=== PATIENT | female | born 1975 | race American Indian/Alaskan Native ===

== ENCOUNTER 2017-10-10 09:43 | Emergency (ER) | payer SELFPAY ==
[2017-10-10] MEDS ORDERED: PROVENTIL IH ONE ×2 (13:22→15:33)
[2017-10-10] MEDS ORDERED: DELTASONE PO ONE (13:22)
[2017-10-10] MEDS ORDERED: DECADRON IV ONE (13:22)
--- NOTE | 2017-10-10 13:41 | Emergency Department Report ---
ED General Adult HPI - General Chief complaint: Upper Respiratory Infection Stated complaint: FLU SX Time Seen by Provider: 10/10/17 13:20 Source: patient Mode of arrival: Wheelchair Limitations: No Limitations - History of Present Illness Initial comments: History this 42-year-old -[place] female history of asthma who presents for flulike symptoms, fever body aches chills nausea vomiting 3 days then increase shortness of breath and wheezing. Onset/Timin -: days(s) Location: back, upper extremity, lower extremity Radiation: non-radiation, back, abdomen, flank Severity scale (0 -10): 4 Quality: aching Consistency: constant Improves with: rest Worsens with: other (activity ) Associated Symptoms: cough, fever/chills, malaise, nausea/vomiting. denies: rash, syncope, weakness Treatments Prior to Arrival: none - Related Data Previous Rx's Medication Instructions Recorded Last Taken Type ALBUTEROL Inhaler [ProAir HFA 2 puff IH QID PRN #1 inhalation 10/10/17 Unknown Rx Inhaler] Azithromycin [Zithromax Z-JAI] 250 mg PO DAILY #6 tab 10/10/17 Unknown Rx Benzonatate [Tessalon Perles] 100 mg PO Q8HR PRN #30 capsule 10/10/17 Unknown Rx Dexamethasone [Decadron] 4 mg PO Q12H #4 tablet 10/10/17 Unknown Rx Diclofenac Sodium [Voltaren] 1 applicatio TP TID PRN #1 tube 10/10/17 Unknown Rx Ibuprofen 800 mg PO TID #30 tablet 10/10/17 Unknown Rx Allergies Allergy/AdvReac Type Severity Reaction Status Date / Time acetaminophen AdvReac Unknown Verified 10/10/17 10:40 [From Tylenol-Codeine] codeine AdvReac Unknown Verified 10/10/17 10:40 [From Tylenol-Codeine] ED Review of Systems ROS: Stated complaint: FLU SX Other details as noted in HPI Constitutional: chills, fever, malaise. denies: weakness Eyes: denies: eye pain, eye discharge, vision change ENT: ear pain, throat pain, congestion Respiratory: cough, shortness of breath, wheezing Cardiovascular: denies: chest pain, palpitations Endocrine: no symptoms reported Gastrointestinal: nausea, vomiting. denies: diarrhea, constipation, hematemesis , melena, hematochezia Genitourinary: denies: urgency, dysuria, discharge Musculoskeletal: back pain. denies: joint swelling, arthralgia, myalgia Skin: denies: rash, lesions Neurological: denies: headache, weakness, paresthesias Psychiatric: denies: anxiety, depression Hematological/Lymphatic: denies: easy bleeding, easy bruising ED Past Medical Hx - Past Medical History Previous Medical History?: Yes Hx Asthma: Yes - Surgical History Past Surgical History?: Yes Additional Surgical History: tubes tied - Social History Smoking Status: Current Every Day Smoker Substance Use Type: None - Medications Home Medications: Home Medications Medication Instructions Recorded Confirmed Last Taken Type ALBUTEROL Inhaler [ProAir HFA 2 puff IH QID PRN #1 inhalation 10/10/17 Unknown Rx Inhaler] Azithromycin [Zithromax Z-JAI] 250 mg PO DAILY #6 tab 10/10/17 Unknown Rx Benzonatate [Tessalon Perles] 100 mg PO Q8HR PRN #30 capsule 10/10/17 Unknown Rx Dexamethasone [Decadron] 4 mg PO Q12H #4 tablet 10/10/17 Unknown Rx Diclofenac Sodium [Voltaren] 1 applicatio TP TID PRN #1 tube 10/10/17 Unknown Rx Ibuprofen 800 mg PO TID #30 tablet 10/10/17 Unknown Rx ED Physical Exam - General Limitations: No Limitations General appearance: alert, in no apparent distress - Head Head exam: Present: atraumatic, normocephalic - Eye Eye exam: Present: normal appearance, PERRL, EOMI Pupils: Present: normal accommodation - ENT ENT exam: Present: mucous membranes moist - Expanded ENT Exam Expanded Ear exam: Present: normal external inspection TM/Canal exam: Erythema: Right TM, Left TM, Canal Tenderness: Right TM, Left TM Mouth exam: Present: tongue normal. Absent: trismus, tongue elevation Teeth exam: Present: dental caries Throat exam: Positive: tonsillar erythema, tonsillomegaly. Negative: tonsillar exudate, R peritonsillar mass, L peritonsillar mass - Neck Neck exam: Present: normal inspection, full ROM. Absent: tenderness, meningismus, lymphadenopathy, thyromegaly - Expanded Neck Exam Expanded Neck exam: Absent: tenderness, midline deformity, anterior neck swelling, thyroid mass, carotid bruit, tracheal deviation - Respiratory Respiratory exam: Present: wheezes, chest wall tenderness. Absent: respiratory distress, rales, rhonchi, stridor, decreased breath sounds, prolonged expiratory - Cardiovascular Cardiovascular Exam: Present: regular rate, normal rhythm, normal heart sounds. Absent: systolic murmur, diastolic murmur, rubs, gallop - GI/Abdominal GI/Abdominal exam: Present: soft, normal bowel sounds. Absent: distended, tenderness, guarding, rebound, rigid, organomegaly, mass, bruit, pulsatile mass , hernia - Rectal Rectal exam: Present: deferred - Extremities Exam Extremities exam: Present: normal inspection, full ROM, normal capillary refill. Absent: tenderness, pedal edema, joint swelling, calf tenderness - Back Exam Back exam: Present: normal inspection, tenderness (no posterior vertebral point tenderness mild paraspinus tenderness to deep palpation ), muscle spasm, paraspinal tenderness. Absent: CVA tenderness (R), CVA tenderness (L), vertebral tenderness, rash noted - Neurological Exam Neurological exam: Present: alert, oriented X3, CN II-XII intact, reflexes normal - Psychiatric Psychiatric exam: Present: normal affect, normal mood - Skin Skin exam: Present: warm, dry, intact, normal color. Absent: rash ED Course Vital Signs 10/10/17 10/10/17 10/10/17 10:35 15:03 15:13 Temperature 99.6 F Pulse Rate 110 H Pulse Rate [ 105 H 110 H Bilateral Upper Lobe] Respiratory 18 Rate Respiratory 18 18 Rate [Bilateral Upper Lobe] Blood Pressure 114/81 O2 Sat by Pulse 97 Oximetry 10/10/17 16:38 Temperature Pulse Rate Pulse Rate [ 94 H Bilateral Upper Lobe] Respiratory Rate Respiratory 18 Rate [Bilateral Upper Lobe] Blood Pressure O2 Sat by Pulse Oximetry ED Medical Decision Making - Lab Data Result diagrams: 10/10/17 13:29 10/10/17 13:29 Laboratory Tests 10/10/17 10/10/17 10/10/17 13:29 13:29 13:29 WBC 4.9 RBC 4.52 Hgb 12.3 Hct 37.1 MCV 82 MCH 27 L MCHC 33 RDW 15.8 H Plt Count 191 Lymph % (Auto) 6.4 L Weld % (Auto) 9.6 H Eos % (Auto) 0.3 Baso % (Auto) 0.6 Lymph # 0.3 L Weld # 0.5 Eos # 0.0 Baso # 0.0 Seg Neutrophils % 83.1 H Seg Neutrophils # 4.0 Sodium 139 Potassium 3.9 Chloride 100.5 Carbon Dioxide 23 Anion Gap 19 BUN 14 Creatinine 0.7 Estimated GFR > 60 BUN/Creatinine Ratio 20 Glucose 95 Calcium 9.1 Total Bilirubin 0.20 AST 16 ALT 8 Alkaline Phosphatase 38 Total Protein 7.4 Albumin 4.0 Albumin/Globulin Ratio 1.2 HCG, Qual Negative - Radiology Data Radiology results: report reviewed, image reviewed no infiltrates no opacities mild thoracolumbar dextrocurvature. - Medical Decision Making History this 42-year-old -[place] female history of asthma who presents for flulike symptoms, fever body aches chills nausea vomiting 3 days then increase shortness of breath and wheezing. URI symptoms: no tm erythema or pain , moderate turbinate erythema clear post nasal drip, no obstruction on polyps no obstruction pharynx: moderate erythemla no exudate no lesions no stridor lungs clear diminished bases bilat, no wheezing cough nonproductive, there is no fever, back : no deformity no posterior vertebral point tenderness no weakness no numbness no decrease or loss or bowel or bladder function, hcg neg: pt refuses ua at this time. as I can'd pee again, plain: tx for URI Bronchitis Zpack, Albuterol, Decadron, Ibuprofen, Cheratussin, pt will follow up pcp in 2- 3 days ,follow up with ortho for recurring back pain , pt verbalized agreement and understanding of discharge plan. Critical care attestation.: If time is entered above; I have spent that time in minutes in the direct care of this critically ill patient, excluding procedure time. ED Disposition Clinical Impression: Bronchitis, Scoliosis concern Low back strain Qualifiers: Encounter type: initial encounter Qualified Code(s): S39.012A - Strain of muscle, fascia and tendon of lower back, initial encounter Chronic back pain Qualifiers: Back pain location: low back pain Back pain laterality: bilateral Sciatica presence: with sciatica Sciatica laterality: bilateral sciatica Qualified Code(s ): M54.42 - Lumbago with sciatica, left side; M54.41 - Lumbago with sciatica, right side; M54.41 - Lumbago with sciatica, right side; G89.29 - Other chronic pain; G89.29 - Other chronic pain URI (upper respiratory infection) Qualifiers: URI type: unspecified viral URI Qualified Code(s): J06.9 - Acute upper respiratory infection, unspecified Disposition: DC-01 TO HOME OR SELFCARE Is pt being admited?: No Does the pt Need Aspirin: No Condition: Good Instructions: Chronic Bronchitis (ED) Prescriptions: ALBUTEROL Inhaler [ProAir HFA Inhaler] 2 puff IH QID PRN #1 inhalation PRN Reason: Shortness Of Breath Azithromycin [Zithromax Z-JAI] 250 mg PO DAILY #6 tab Benzonatate [Tessalon Perles] 100 mg PO Q8HR PRN #30 capsule PRN Reason: Cough Dexamethasone [Decadron] 4 mg PO Q12H #4 tablet Diclofenac Sodium [Voltaren] 1 applicatio TP TID PRN #1 tube PRN Reason: Pain Ibuprofen 800 mg PO TID #30 tablet Referrals: PRIMARY CAREMD [Primary Care Provider] - 3-5 Days DOREEN HARRIS MD [Staff Physician] - 3-5 Days FARSHAD YE MD [Staff Physician] - 3-5 Days Forms: Work/School Release Form(ED) Time of Disposition: 16:59
[2017-10-10 14:03] LABS: Basophils % (Auto) 0.6 % (0.0-1.8); Eosinophils % (Auto) 0.3 % (0.0-4.3); Hematocrit 37.1 % (30.3-42.9); Hemoglobin 12.3 gm/dl (10.1-14.3); Lymphocytes # (Auto) 0.3 K/mm3 (1.2-5.4); Lymphocytes % (Auto) 6.4 % (13.4-35.0); Mean Corpuscular HGB Conc 33 % (30-34); Mean Corpuscular Hemoglobin 27 pg (28-32); Mean Corpuscular Volume 82 fl (79-97); Monocytes # (Auto) 0.5 K/mm3 (0.0-0.8); Monocytes % (Auto) 9.6 % (0.0-7.3); Platelet Count 191 K/mm3 (140-440); Red Blood Count 4.52 M/mm3 (3.65-5.03); Red Cell Distribution Width 15.8 % (13.2-15.2)
[2017-10-10 14:31] LABS: Alanine Aminotransferase 8 units/L (7-56); BUN/Creatinine Ratio 20; Blood Urea Nitrogen 14 mg/dL (7-17); Calcium 9.1 mg/dL (8.4-10.2); Hemolysis Index 2
--- NOTE | 2017-10-10 15:12 | XRay Report ---
PORTABLE CHEST INDICATION: Cough, fever. COMPARISON: None similar at this institution. FINDINGS: Portable, frontal chest radiographs, 2 images, demonstrate normal cardiomediastinal silhouette. Clear, well-expanded lungs. Mild thoracolumbar dextrocurvature, possibly positional versus scoliosis. CONCLUSION: No acute chest process, as described. Thank you for the opportunity to participate in this patient's care.
[2017-10-10] MEDS ORDERED: TORADOL IM ONE (15:33)
[2017-10-10 17:03] LABS: Bacteria,Urine 2+ /HPF (Negative); Bilirubin,Urine NEG (Negative); Blood,Urine LG (Negative); Color,Urine Yellow (Yellow); Mucus,Urine FEW /HPF; Nitrite,Urine NEG (Negative); Urobilinogen,Urine < 2.0 mg/dL (<2.0)
[2017-10-10 17:33] VITALS: BP 105/57
== END 2017-10-10 17:01 | disposition home or self-care (01) ==
LOC: ED 09:43
DX: J40 Bronchitis, not specified as acute or chronic (principal); Z88.5 Allergy status to narcotic agent; Z96.22 Myringotomy tube(s) status; F17.200 Nicotine dependence, unspecified, uncomplicated
CPT/HCPCS: 36415; 71045; 80053; 81001; 84703; 85025; 94640; 96372; 96374; 99284; J1100; J1885; J7512

== ENCOUNTER 2019-07-11 22:57 | Emergency (ER) | payer SELFPAY ==
[2019-07-12] MEDS ORDERED: oxyCODONE /ACETAMINOPHEN 5-325MG TAB PO STA (01:00)
--- NOTE | 2019-07-12 01:08 | Emergency Department Report ---
ED ENT HPI - General Chief complaint: Dental/Oral Stated complaint: RIGHT JAW PAIN/HEADACHE Time Seen by Provider: 07/12/19 00:23 Source: patient Mode of arrival: Ambulatory Limitations: No Limitations - History of Present Illness Initial comments: 44-year-old -[place] female presents with department complaining of tooth pain to the right jaw for the last 4-5 days. She had a dental extraction about 3 weeks ago and had a round of antibiotics since that time and metoprolol pain to the right jaw and tooth area was reported with palpation and eating. Pupils no fever, chills, sweats no chest pain or palpitations is no nausea vomiting. No odynophagia or dysphagia. MD complaint: tooth pain -: Gradual Location: tooth # Severity: mild Quality: dull Consistency: constant Improves with: none Worsens with: none Context- Dental: poor dental care Associated Symptoms: toothache. denies: sore throat, tinnitus, discharge from ear, rhinorrhea - Related Data Previous Rx's Medication Instructions Recorded Last Taken Type ALBUTEROL Inhaler (OR & NICU) 2 puff IH QID PRN #1 inhalation 10/10/17 Unknown Rx [ProAir HFA Inhaler] Benzonatate [Tessalon Perles] 100 mg PO Q8HR PRN #30 capsule 10/10/17 Unknown Rx Cephalexin [Keflex] 500 mg PO BID #20 capsule 10/10/17 Unknown Rx Diclofenac Sodium [Voltaren] 1 applicatio TP TID PRN #1 tube 10/10/17 Unknown Rx dexAMETHasone [Decadron] 4 mg PO Q12H #4 tablet 10/10/17 Unknown Rx traMADol [Ultram 50 MG tab] 50 mg PO Q6HR PRN #20 tablet 10/10/17 Unknown Rx Chlorhexidine Mouthwash [Peridex] 15 ml MM BID #473 bottle 07/12/19 Unknown Rx Ketorolac [Toradol] 10 mg PO Q6H PRN #15 tablet 07/12/19 Unknown Rx Lidocaine Viscous 2% 5 ml MM Q3H PRN #120 udc 07/12/19 Unknown Rx Allergies Allergy/AdvReac Type Severity Reaction Status Date / Time acetaminophen AdvReac Unknown Verified 10/10/17 10:40 [From Tylenol-Codeine] codeine AdvReac Unknown Verified 10/10/17 10:40 [From Tylenol-Codeine] ED Dental HPI - General Chief complaint: Dental/Oral Stated complaint: RIGHT JAW PAIN/HEADACHE Time Seen by Provider: 07/12/19 00:23 Source: patient Mode of arrival: Ambulatory Limitations: No Limitations - Related Data Previous Rx's Medication Instructions Recorded Last Taken Type ALBUTEROL Inhaler (OR & NICU) 2 puff IH QID PRN #1 inhalation 10/10/17 Unknown Rx [ProAir HFA Inhaler] Benzonatate [Tessalon Perles] 100 mg PO Q8HR PRN #30 capsule 10/10/17 Unknown Rx Cephalexin [Keflex] 500 mg PO BID #20 capsule 10/10/17 Unknown Rx Diclofenac Sodium [Voltaren] 1 applicatio TP TID PRN #1 tube 10/10/17 Unknown Rx dexAMETHasone [Decadron] 4 mg PO Q12H #4 tablet 10/10/17 Unknown Rx traMADol [Ultram 50 MG tab] 50 mg PO Q6HR PRN #20 tablet 10/10/17 Unknown Rx Chlorhexidine Mouthwash [Peridex] 15 ml MM BID #473 bottle 07/12/19 Unknown Rx Ketorolac [Toradol] 10 mg PO Q6H PRN #15 tablet 07/12/19 Unknown Rx Lidocaine Viscous 2% 5 ml MM Q3H PRN #120 udc 07/12/19 Unknown Rx Allergies Allergy/AdvReac Type Severity Reaction Status Date / Time acetaminophen AdvReac Unknown Verified 10/10/17 10:40 [From Tylenol-Codeine] codeine AdvReac Unknown Verified 10/10/17 10:40 [From Tylenol-Codeine] ED Review of Systems ROS: Stated complaint: RIGHT JAW PAIN/HEADACHE Other details as noted in HPI Comment: All other systems reviewed and negative ED Past Medical Hx - Past Medical History Previous Medical History?: Yes Hx Asthma: Yes Additional medical history: Uterine FIBROIDS - Surgical History Past Surgical History?: Yes Additional Surgical History: Tubal Ligation - Social History Smoking Status: Current Every Day Smoker Substance Use Type: None - Medications Home Medications: Home Medications Medication Instructions Recorded Confirmed Last Taken Type ALBUTEROL Inhaler (OR & NICU) 2 puff IH QID PRN #1 inhalation 10/10/17 Unknown Rx [ProAir HFA Inhaler] Benzonatate [Tessalon Perles] 100 mg PO Q8HR PRN #30 capsule 10/10/17 Unknown Rx Cephalexin [Keflex] 500 mg PO BID #20 capsule 10/10/17 Unknown Rx Diclofenac Sodium [Voltaren] 1 applicatio TP TID PRN #1 tube 10/10/17 Unknown Rx dexAMETHasone [Decadron] 4 mg PO Q12H #4 tablet 10/10/17 Unknown Rx traMADol [Ultram 50 MG tab] 50 mg PO Q6HR PRN #20 tablet 10/10/17 Unknown Rx Chlorhexidine Mouthwash [Peridex] 15 ml MM BID #473 bottle 07/12/19 Unknown Rx Ketorolac [Toradol] 10 mg PO Q6H PRN #15 tablet 07/12/19 Unknown Rx Lidocaine Viscous 2% 5 ml MM Q3H PRN #120 udc 07/12/19 Unknown Rx ED Physical Exam - General Limitations: No Limitations General appearance: alert, in no apparent distress - Head Head exam: Present: atraumatic, normocephalic - Eye Eye exam: Present: normal appearance, PERRL, EOMI Pupils: Present: normal accommodation - ENT ENT exam: Present: normal exam, normal orophraynx, mucous membranes moist, TM's normal bilaterally, other (severe dental erosion with several loose missing dentition there is some erythema around the right upper molar with a moderate to severe dental cavity. There is tenderness with palpation along the right temporal mandibular joint no active bleeding or discharge is noted. Airway is patent are midline) - Neck Neck exam: Present: normal inspection, full ROM - Respiratory Respiratory exam: Present: normal lung sounds bilaterally. Absent: respiratory distress, wheezes, rales, chest wall tenderness, accessory muscle use - Cardiovascular Cardiovascular Exam: Present: regular rate, normal rhythm. Absent: systolic murmur, diastolic murmur, rubs, gallop - GI/Abdominal GI/Abdominal exam: Present: soft, normal bowel sounds - Extremities Exam Extremities exam: Present: normal inspection - Back Exam Back exam: Present: normal inspection. Absent: CVA tenderness (R), CVA tenderness (L) - Neurological Exam Neurological exam: Present: alert, oriented X3, CN II-XII intact, normal gait - Psychiatric Psychiatric exam: Present: normal affect, normal mood - Skin Skin exam: Present: warm, dry, intact, normal color. Absent: rash Critical care attestation.: If time is entered above; I have spent that time in minutes in the direct care of this critically ill patient, excluding procedure time. ED Disposition Clinical Impression: Dentalgia Disposition: TO HOME OR SELFCARE Is pt being admited?: No Does the pt Need Aspirin: No Condition: Stable Instructions: Dental Caries (ED), Toothache (ED) Referrals: [facility] [Outside] - 3-5 Days
[2019-07-12 02:14] VITALS: BP 140/73
== END 2019-07-12 01:30 | disposition home or self-care (01) ==
LOC: ED 22:57
DX: K08.89 Other specified disorders of teeth and supporting structures (principal); J45.909 Unspecified asthma, uncomplicated; F17.200 Nicotine dependence, unspecified, uncomplicated
CPT/HCPCS: 99282

== ENCOUNTER 2020-05-29 13:20 | Emergency (ER) | payer SELFPAY ==
[2020-05-29 13:33] VITALS: BP 104/74
--- NOTE | 2020-05-29 15:29 | XRay Report ---
CHEST 2 VIEWS INDICATION / CLINICAL INFORMATION: Chest Pain/shortnes of breath. COMPARISON: 10/10/2017 FINDINGS: SUPPORT DEVICES: None. HEART / MEDIASTINUM: No significant abnormality. LUNGS / PLEURA: No significant pulmonary or pleural abnormality. No pneumothorax. ADDITIONAL FINDINGS: Mild thoracolumbar scoliosis IMPRESSION: Mild thoracolumbar scoliosis. No acute disease or interval change from 10/10/2017 Signer Name: Bautista Diane MD FACBailey Signed: 05/29/2020 3:25 PM Workstation Name: [email or web address]
[2020-05-29 16:19] LABS: Basophils % (Auto) 0.9 % (0.0-1.8); Eosinophils # (Auto) 0.1 K/mm3 (0.0-0.4); Eosinophils % (Auto) 1.2 % (0.0-4.3); Hematocrit 41.8 % (30.3-42.9); Hemoglobin 13.3 gm/dl (10.1-14.3); Lymphocytes # (Auto) 1.6 K/mm3 (1.2-5.4); Lymphocytes % (Auto) 33.5 % (13.4-35.0); Mean Corpuscular HGB Conc 32 % (30-34); Mean Corpuscular Volume 79 fl (79-97); Monocytes # (Auto) 0.3 K/mm3 (0.0-0.8); Platelet Count 275 K/mm3 (140-440); Red Blood Count 5.31 M/mm3 (3.65-5.03); Red Cell Distribution Width 21.7 % (13.2-15.2)
[2020-05-29 16:26] LABS: Alanine Aminotransferase 11 units/L (7-56); Albumin 4.6 g/dL (3.9-5); Blood Urea Nitrogen 14 mg/dL (7-17); Calcium 9.8 mg/dL (8.4-10.2); Hemolysis Index 7
[2020-05-29 16:38] LABS: BUN/Creatinine Ratio 23
[2020-05-29] MEDS ORDERED: LIDOCAINE VISCOUS 2% 15 ML ORAL LIQD PO ONE (19:32)
[2020-05-29] MEDS ORDERED: ALUM-MAG HYDROXIDE-SIMETHICONE 200-200-20MG/5ML ORAL LIQD 30 ML PO ONE (19:32)
[2020-05-29] MEDS ORDERED: ONDANSETRON 4 MG/2 ML INJ IV ONE (19:42)
[2020-05-29 20:36] LABS: Bilirubin,Urine NEG (Negative); Blood,Urine SM (Negative); Color,Urine Yellow (Yellow); Mucus,Urine 1+ /HPF; Protein,Urine <15 mg/dL mg/dL (Negative); Urobilinogen,Urine < 2.0 mg/dL (<2.0)
--- NOTE | 2020-05-29 21:42 | Ultrasound Report ---
ULTRASOUND ABDOMEN, LIMITED (RIGHT UPPER QUADRANT) INDICATION / CLINICAL INFORMATION: RUQ r/o gallstones. COMPARISON: None available. FINDINGS: PANCREAS: Visualized portion shows no significant abnormality. LIVER: No significant abnormality. GALLBLADDER: Minimal internal echogenicity suggesting biliary crystals or sludge. No evidence of acut e cholecystitis. BILE DUCTS: No significant abnormality. Common bile duct measures 1 mm. FREE FLUID: None. ADDITIONAL FINDINGS: None. IMPRESSION: 1. Biliary crystals versus sludge. No acute cholecystitis. Signer Name: Bassam Santoyo MD Signed: 05/29/2020 9:37 PM Workstation Name: [id number]
--- NOTE | 2020-05-29 21:49 | Emergency Department Report ---
ED Chest Pain HPI - General Chief Complaint: Chest Pain Stated Complaint: ABD PAIN Time Seen by Provider: 05/29/20 19:31 Source: patient Mode of arrival: Ambulatory Limitations: No Limitations - History of Present Illness Initial Comments: Patient is a 44-year-old -[place] female patient denies medical history who presents for right upper quadrant abdominal pain radiating to mid chest x2 weeks. Patient is [id number] smoker. Symptoms are exacerbated by moving and activity. Patient states nausea and vomiting x2 episodes today, states green bile looking substance. There is been no dizziness, lightheadedness, or shortness of breath. Pain is exacerbated by movement bending twisting and activity. Pain is relieved by nothing tried. Patient states pain rating is 5/10 at this time. MD Complaint: chest pain Severity scale (0 -10): 8 - Related Data Previous Rx's Medication Instructions Recorded Last Taken Type Albuterol Mdi (or & Nicu Only) 2 puff IH QID PRN #1 inhalation 10/10/17 Unknown Rx [ProAir HFA Inhaler] Benzonatate [Tessalon Perles] 100 mg PO Q8HR PRN #30 capsule 10/10/17 Unknown Rx Cephalexin [Keflex] 500 mg PO BID #20 capsule 10/10/17 Unknown Rx Diclofenac Sodium [Voltaren] 1 applicatio TP TID PRN #1 tube 10/10/17 Unknown Rx dexAMETHasone [Decadron] 4 mg PO Q12H #4 tablet 10/10/17 Unknown Rx traMADoL [Ultram 50 MG tab] 50 mg PO Q6HR PRN #20 tablet 10/10/17 Unknown Rx Chlorhexidine Mouthwash [Peridex] 15 ml MM BID #473 bottle 07/12/19 Unknown Rx Ketorolac [Toradol] 10 mg PO Q6H PRN #15 tablet 07/12/19 Unknown Rx Lidocaine Viscous 2% 5 ml MM Q3H PRN #120 udc 07/12/19 Unknown Rx Famotidine [Pepcid] 20 mg PO BID #30 tablet 05/29/20 Unknown Rx Allergies Allergy/AdvReac Type Severity Reaction Status Date / Time codeine Allergy Hives Verified 05/29/20 13:36 [From Tylenol-Codeine] latex Allergy Unknown Verified 05/29/20 13:36 Heart Score - HEART Score History: Slightly suspicious EKG: Normal Age: < 45 Risk factors: No known risk factors Troponin: < normal limit HEART Score: 0 ED Review of Systems ROS: Stated complaint: ABD PAIN Other details as noted in HPI Constitutional: denies: chills, fever Eyes: denies: eye pain, eye discharge, vision change ENT: denies: ear pain, throat pain Respiratory: denies: cough, shortness of breath, wheezing Cardiovascular: chest pain. denies: palpitations Endocrine: no symptoms reported Gastrointestinal: abdominal pain, nausea, vomiting. denies: diarrhea Genitourinary: denies: urgency, dysuria, discharge Musculoskeletal: denies: back pain, joint swelling, arthralgia Skin: denies: rash, lesions Neurological: denies: headache, weakness, paresthesias Psychiatric: denies: anxiety, depression Hematological/Lymphatic: denies: easy bleeding, easy bruising ED Past Medical Hx - Past Medical History Hx Asthma: Yes Additional medical history: Uterine FIBROIDS - Surgical History Additional Surgical History: Tubal Ligation - Social History Smoking Status: Current Every Day Smoker Substance Use Type: None - Medications Home Medications: Home Medications Medication Instructions Recorded Confirmed Last Taken Type Albuterol Mdi (or & Nicu Only) 2 puff IH QID PRN #1 inhalation 10/10/17 Unknown Rx [ProAir HFA Inhaler] Benzonatate [Tessalon Perles] 100 mg PO Q8HR PRN #30 capsule 10/10/17 Unknown Rx Cephalexin [Keflex] 500 mg PO BID #20 capsule 10/10/17 Unknown Rx Diclofenac Sodium [Voltaren] 1 applicatio TP TID PRN #1 tube 10/10/17 Unknown Rx dexAMETHasone [Decadron] 4 mg PO Q12H #4 tablet 10/10/17 Unknown Rx traMADoL [Ultram 50 MG tab] 50 mg PO Q6HR PRN #20 tablet 10/10/17 Unknown Rx Chlorhexidine Mouthwash [Peridex] 15 ml MM BID #473 bottle 07/12/19 Unknown Rx Ketorolac [Toradol] 10 mg PO Q6H PRN #15 tablet 07/12/19 Unknown Rx Lidocaine Viscous 2% 5 ml MM Q3H PRN #120 udc 07/12/19 Unknown Rx Famotidine [Pepcid] 20 mg PO BID #30 tablet 05/29/20 Unknown Rx ED Physical Exam - General Limitations: No Limitations General appearance: alert, in no apparent distress - Head Head exam: Present: atraumatic - Eye Eye exam: Present: normal appearance, EOMI Pupils: Present: normal accommodation - ENT ENT exam: Present: mucous membranes moist - Neck Neck exam: Present: normal inspection, full ROM. Absent: tenderness, lymphadenopathy - Respiratory Respiratory exam: Present: normal lung sounds bilaterally, wheezes. Absent: respiratory distress, stridor, chest wall tenderness - Cardiovascular Cardiovascular Exam: Present: regular rate, normal rhythm, normal heart sounds. Absent: systolic murmur, diastolic murmur, rubs, gallop - GI/Abdominal GI/Abdominal exam: Present: soft, distended, tenderness (RUQ ), normal bowel sounds. Absent: guarding, rebound, rigid, bruit, hernia - Expanded GI/Abdominal Exam Expanded GI/Abdominal exam: Present: Francis's sign. Absent: psoas sign, obturator sign, heel tap sign, Rovsing's sign, tenderness at Mcburney's Point - Rectal Rectal exam: Present: deferred - Extremities Exam Extremities exam: Present: normal inspection, full ROM, normal capillary refill. Absent: tenderness, pedal edema - Back Exam Back exam: Present: normal inspection, full ROM. Absent: tenderness, CVA tenderness (R) - Neurological Exam Neurological exam: Present: alert, oriented X3, CN II-XII intact, normal gait - Psychiatric Psychiatric exam: Present: normal affect, normal mood - Skin Skin exam: Present: warm, dry, intact, normal color. Absent: rash ED Course Vital Signs 05/29/20 13:32 Temperature 98.1 F Pulse Rate 100 H Respiratory 18 Rate Blood Pressure 104/74 [Right] O2 Sat by Pulse 100 Oximetry WILLY score - Willy Score Age > 65: (0) No Aspirin use within the Past 7 Days: (0) No 3 or more CAD Risk Factors: (0) No 2 or more Angina events in past 24 hrs: (0) No Known CAD with more than 50% Stenosis: (0) No Elevated Cardiac Markers: (0) No ST Deviation Greater than 0.5mm: (0) No WILLY Score: 0 ED Medical Decision Making - Lab Data Result diagrams: 05/29/20 15:39 05/29/20 15:39 Labs 05/29/20 05/29/20 05/29/20 15:39 15:39 18:23 WBC 4.9 RBC 5.31 H Hgb 13.3 Hct 41.8 MCV 79 MCH 25 L MCHC 32 RDW 21.7 H Plt Count 275 Lymph % (Auto) 33.5 [place] % (Auto) 7.0 Eos % (Auto) 1.2 Baso % (Auto) 0.9 Lymph # 1.6 [place] # 0.3 Eos # 0.1 Baso # 0.0 Seg Neutrophils % 57.4 Seg Neutrophils # 2.8 Sodium 138 Potassium 3.8 Chloride 100.1 Carbon Dioxide 22 Anion Gap 20 BUN 14 Creatinine 0.6 Estimated GFR > 60 BUN/Creatinine Ratio 23 Glucose 82 Calcium 9.8 Total Bilirubin 0.30 AST 19 ALT 11 Alkaline Phosphatase 49 Troponin T < 0.010 < 0.010 Total Protein 8.0 Albumin 4.6 Albumin/Globulin Ratio 1.4 Lipase Urine Color Urine Turbidity Urine pH Ur Specific [place] Urine Protein Urine Glucose (UA) Urine Ketones Urine Blood Urine Nitrite Urine Bilirubin Urine Urobilinogen Ur Leukocyte Esterase Urine WBC (Auto) Urine RBC (Auto) U Epithel Cells (Auto) Urine Mucus 05/29/20 05/29/20 19:45 20:27 WBC RBC Hgb Hct MCV MCH MCHC RDW Plt Count Lymph % (Auto) [place] % (Auto) Eos % (Auto) Baso % (Auto) Lymph # [place] # Eos # Baso # Seg Neutrophils % Seg Neutrophils # Sodium Potassium Chloride Carbon Dioxide Anion Gap BUN Creatinine Estimated GFR BUN/Creatinine Ratio Glucose Calcium Total Bilirubin AST ALT Alkaline Phosphatase Troponin T Total Protein Albumin Albumin/Globulin Ratio Lipase 17 Urine Color Yellow Urine Turbidity Clear Urine pH 5.0 Ur Specific [place] 1.015 Urine Protein <15 mg/dl Urine Glucose (UA) Neg Urine Ketones 80 Urine Blood Sm Urine Nitrite Neg Urine Bilirubin Neg Urine Urobilinogen < 2.0 Ur Leukocyte Esterase Neg Urine WBC (Auto) 2.0 Urine RBC (Auto) 3.0 U Epithel Cells (Auto) 3.0 Urine Mucus 1+ - EKG Data EKG shows normal: sinus rhythm Rate: normal - EKG Data Interpretation: normal EKG (NSR Bilat enlargment , No STEMI , ekg interp by ed attending ) - Radiology Data Findings Reporting MD: Bassam Santoyo Dictation Time: May 29, 2020 20:37 Biological Lab Technician: Not available Press Operator Assistant Date: ULTRASOUND ABDOMEN, LIMITED (RIGHT UPPER QUADRANT) INDICATION / CLINICAL INFORMATION: RUQ r/o gallstones. COMPARISON: None available. FINDINGS: PANCREAS: Visualized portion shows no significant abnormality. LIVER: No significant abnormality. GALLBLADDER: Minimal internal echogenicity suggesting biliary crystals or sludge. No evidence of acute cholecystitis. BILE DUCTS: No significant abnormality. Common bile duct measures 1 mm. FREE FLUID: None. ADDITIONAL FINDINGS: None. IMPRESSION: 1. Biliary crystals versus sludge. No acute cholecystitis. Signer Name: Bassam Santoyo MD Signed: 05/29/2020 8:37 PM Workstation Name: [id number] Findings Reporting MD: Bautista Diane Dictation Time: May 29, 2020 14:25 Biological Lab Technician: Not available Press Operator Assistant Date: CHEST 2 VIEWS INDICATION / CLINICAL INFORMATION: Chest Pain/shortnes of breath. COMPARISON: 10/10/2017 FINDINGS: SUPPORT DEVICES: None. HEART / MEDIASTINUM: No significant abnormality. LUNGS / PLEURA: No significant pulmonary or pleural abnormality. No pneumothorax. ADDITIONAL FINDINGS: Mild thoracolumbar scoliosis IMPRESSION: Mild thoracolumbar scoliosis. No acute disease or interval change from 10/10/2017 Signer Name: Bautista Diane MD FACR Signed: 05/29/2020 2:25 PM Workstation Name: [id number] - Medical Decision Making EKG normal sinus rhythm no ST elevated [facility] EKG interpreted by ED attending. Chest x-ray is normal no infiltrates no opacities. Ultrasound right upper quadrant mild sludge no gallstones. Heart score is 0. WILLY score is 0. Labs are normal UA is normal pain is improved with GI cocktail given in ED. Patient advised to stop smoking DC'd home with short-term PPI follow-up with PCP in 2 to 3 days patient will return to ED should symptoms worsen or shortness of breath or continued chest pain. Patient verbalized agreement and understanding with discharge plan. Patient DC'd home in stable condition at this time. Critical care attestation.: If time is entered above; I have spent that time in minutes in the direct care of this critically ill patient, excluding procedure time. ED Disposition Clinical Impression: Chest pain Qualifiers: Chest pain type: unspecified Qualified Code(s): R07.9 - Chest pain, unspecified Abdominal pain Qualifiers: Abdominal location: right upper quadrant Qualified Code(s): R10.11 - Right upper quadrant pain GERD (gastroesophageal reflux disease) Qualifiers: Esophagitis presence: without esophagitis Qualified Code(s): K21.9 - Gastro- esophageal reflux disease without esophagitis Disposition: TO HOME OR SELFCARE Is pt being admited?: No Does the pt Need Aspirin: No Condition: Stable Instructions: Chest Pain (ED), Gastroesophageal Reflux Disease (ED), Diet for Ulcers and Gastritis (ED), How to Stop Smoking (ED) Prescriptions: Famotidine [Pepcid] 20 mg PO BID #30 tablet Referrals: JAY JAY MORRIS MD [Staff Physician] - 3-5 Days Forms: Work/School Release Form(ED) Time of Disposition: 21:59
== END 2020-05-29 20:10 | disposition home or self-care (01) ==
LOC: ED 13:20
DX: K21.9 Gastro-esophageal reflux disease without esophagitis (principal); R07.89 Other chest pain; J45.909 Unspecified asthma, uncomplicated; F17.200 Nicotine dependence, unspecified, uncomplicated; Z98.51 Tubal ligation status; Z79.899 Other long term (current) drug therapy; Z88.6 Allergy status to analgesic agent; Z91.040 Latex allergy status
CPT/HCPCS: 36415; 71046; 76705; 80053; 81001; 83690; 84484; 85025; 93005; 96374; 99285; J2405

== ENCOUNTER 2020-06-11 18:22 | Emergency (ER) | payer SELFPAY | END 2020-06-11 19:18 | disposition left against medical advice (07) | LOC: ED 18:22 | DX: M79.18 Myalgia, other site (principal); Z53.21 Procedure and treatment not carried out due to patient leaving prior to being seen by health care provider ==